=== PATIENT | female | born 1970 | race Two or more races ===

== ENCOUNTER 2019-03-13 06:55 | Outpatient (CLI) | payer OTHER | END 2019-03-13 07:25 | disposition home or self-care (01) | LOC: LAB 06:55 | DX: D64.89 Other specified anemias (principal); E88.89 Other specified metabolic disorders; D68.8 Other specified coagulation defects; N39.0 Urinary tract infection, site not specified; Z22.322 Carrier or suspected carrier of Methicillin resistant Staphylococcus aureus; Z76.89 Persons encountering health services in other specified circumstances; I49.8 Other specified cardiac arrhythmias ==

== ENCOUNTER 2019-04-02 05:00 | Day surgery (SDC) | payer OTHER | END 2019-04-02 12:30 | disposition home or self-care (01) | LOC: CIR.AMB 05:00 | DX: T84.84XA Pain due to internal orthopedic prosthetic devices, implants and grafts, initial encounter (principal); M65.4 Radial styloid tenosynovitis [de Quervain] ==